=== PATIENT | female | born 1985 | race African-American/Black ===

== ENCOUNTER → 2019-09-23 | Outpatient (CLI) | payer MEDICARE, MEDICAID ==
[2014-11-08 17:04] VITALS: BP 126/72
[~2019-09-23] MED LIST: CLOZ100T PO; DIVA500T2 PO; HYDR50TA PO; OLAN20TA3 PO; TRAZ300T2 PO
--- NOTE | 2019-09-23 10:53 | KCIC ---
EXAM: Abdomen sonogram. HISTORY: Pain. TECHNIQUE: Sonographic imaging of the abdomen was performed. COMPARISON: CT dated 09/22/2014. FINDINGS: The exam is limited due to body habitus and bowel gas. The liver is enlarged. There is hepatic steatosis. No focal hepatic lesion is seen. The common bile duct is normal in caliber. The gallbladder is unremarkable. The kidneys are normal in size. There is no hydronephrosis. The pancreas, aorta, spleen and inferior vena cava are predominantly obscured due to bowel gas. The spleen appears to be normal in size. There are incidental splenic granulomas. The aorta appears to be normal in caliber. IMPRESSION: 1. Hepatomegaly and hepatic steatosis. 2. Limited exam due to body habitus and bowel gas. The midline structures are partially obscured. Electronically signed by: Fabiola Chin MD (09/23/2019 10:50 AM) [id number]
== END | disposition home or self-care (01) ==
LOC: KCIC US 07:42
PROVIDERS: ATTEND Family Medicine
DX: K76.0 Fatty (change of) liver, not elsewhere classified (principal); R16.0 Hepatomegaly, not elsewhere classified; D73.89 Other diseases of spleen
CPT/HCPCS: 76700

== ENCOUNTER → 2020-08-06 | Outpatient (CLI) | payer MEDICARE, MEDICAID ==
[2014-11-08 17:04] VITALS: BP 126/72
[~2020-08-06] MED LIST changes: +ATOR10TA60 PO; +BENZ2TAB5 PO; +BUSP30TA PO; +CLON1TAB12 PO; +CLOZ100T7 PO; +DIVA500T17 PO; +DOCU-109 PO; +GLYC2TAB4 PO; +HYDR50CA2 PO; +IBUP-1060 PO; +MULT-505 PO; +OMEP20CA16 PO; +TRAZ-123 PO
== END ==
LOC: LAB 08:30
PROVIDERS: ATTEND Obstetrics & Gynecology
DX: Z01.812 Encounter for preprocedural laboratory examination (principal)
CPT/HCPCS: U0003

== ENCOUNTER 2020-08-08 06:24 | Day surgery (SDC) | payer MEDICARE, MEDICAID ==
[~2020-08-08 06:24] MED LIST changes: -DOCU-109 PO; -IBUP-1060 PO
[2020-08-08] MEDS ORDERED: PROCHLORPERAZINE 10 MG/2 ML VIAL. IV PRN (07:00)
[2020-08-08] MEDS ORDERED: MORPHINE SULFATE 2 MG/ML VIAL. IV PRN (07:00)
[2020-08-08] MEDS ORDERED: LIDOCAINE 1% PF 2 ML VIAL. ID PRN (07:00)
[2020-08-08] MEDS ORDERED: ONDANSETRON PF 4 MG/2 ML VIAL. IV PRN (07:00)
[2020-08-08] MEDS ORDERED: HYDROmorphone 2 MG/ML VIAL IV PRN (07:00)
[2020-08-08] MEDS ORDERED: IV RINGERS,LACTATED 1000ML 1,000 ML IV SCH (07:00)
[2020-08-08] MEDS ORDERED: fentaNYL PF VIAL 100 MCG/2 ML VIAL IV PRN (07:00)
[2020-08-08 07:23] LABS: BASO # 0.1 x10^3/uL (0.0-0.2); BASO % 1 % (0-3); EOS # 0.1 x10^3/uL (0.0-0.7); EOS % 1 % (0-3); HEMATOCRIT 40.1 % (36.0-47.0); HEMOGLOBIN 13.1 g/dL (12.0-15.5); LYMPH # 4.8 x10^3/uL (1.0-4.8); LYMPH % 40 % (24-48); MEAN CORPUSCULAR HEMOGLOBIN 28 pg (25-35); MEAN CORPUSCULAR HGB CONC 33 g/dL (31-37); MEAN CORPUSCULAR VOLUME 84 fL (79-100); MONO # 0.7 x10^3/uL (0.0-1.1); MONO % 6 % (0-9); NEUT # 6.4 x10^3/uL (1.8-7.7); NEUT % 53 % (31-73); PLATELET COUNT 237 x10^3/uL (140-400); RED BLOOD COUNT 4.75 x10^6/uL (3.50-5.40); RED CELL DISTRIBUTION WIDTH 13.5 % (11.5-14.5)
[2020-08-08] MEDS ORDERED: LIDOCAINE 2% PF 5 ML VIAL. ONE (08:14)
[2020-08-08] MEDS ORDERED: DEXAMETHASONE SOD PHOS 4 MG/ML VIAL ONE (08:14)
[2020-08-08] MEDS ORDERED: ONDANSETRON PF 4 MG/2 ML VIAL. ONE (08:14)
[2020-08-08] MEDS ORDERED: PROPOFOL 10 MG/ML (20ML) VIAL. IV ONE (08:14)
[2020-08-08] MEDS ORDERED: fentaNYL PF VIAL 100 MCG/2 ML VIAL ONE ×2 (08:15→08:37)
[2020-08-08] MEDS ORDERED: SEVOFLURANE 16 TO 30 MINUTES. IH ONE (08:16)
[2020-08-08] MEDS ORDERED: PROCHLORPERAZINE 10 MG/2 ML VIAL. ONE (08:37)
[2020-08-08] MEDS ORDERED: DOCU-109 PO (08:47)
[2020-08-08] MEDS ORDERED: IBUP-1060 PO (08:47)
[2020-08-08] MEDS: fentaNYL PF VIAL 100 MCG/2 ML VIAL IV PRN ×2 (09:13→09:27)
[2020-08-08] MEDS ORDERED: IBUPROFEN 400 MG TABLET. PO ONE (09:30)
[2020-08-08 09:40] VITALS: BP 126/66
--- NOTE | 2020-08-08 10:13 | PDOC4 ---
OPERATIVE NOTE: PreOp Dx: 1.) Abd/Pelvic pain, 2.) AUB/Irregular bleeding, 3.) H/o dysplasia s/p excisional procedure in ~2013, 4.) Schizoaffective do, Bipolar, anxiety, ADHD , 5.) Hypothyroid, 6.) Tob use PostOp Dx: same Procedure: H/S, D&C Surgeon: Sherman Olson Anesthesia: GETA EBL: 100 cc Findings: nml appearing endometrial cavity Complications: none Path: endometrial curettage TAMMI OLSON MD Aug 08, 2020 10:13
--- NOTE | 2020-08-08 10:42 | OP ---
DATE OF SURGERY: 08/08/2020 PREOPERATIVE DIAGNOSES: 1. Abdominal/pelvic pain. 2. Abnormal uterine bleeding/irregular bleeding. 3. History of dysplasia status post excisional procedure in 2013. 4. Schizophrenia, bipolar, anxiety, ADHD. 5. Hypothyroidism. 6. Tobacco use. POSTOPERATIVE DIAGNOSES: 1. Abdominal/pelvic pain. 2. Abnormal uterine bleeding/irregular bleeding. 3. History of dysplasia status post excisional procedure in 2013. 4. Schizophrenia, bipolar, anxiety, ADHD. 5. Hypothyroidism. 6. Tobacco use. PROCEDURE: Hysteroscopy, D & C. SURGEON: Gerald Olson MD ANESTHESIA: General endotracheal intubation. ESTIMATED BLOOD LOSS: 100 mL. FINDINGS: Normal appearing endometrium. COMPLICATIONS: None. PATHOLOGY: Endometrial curetting. INDICATIONS: The patient is a 35-year-old 1, para 0-0-1-0, who presented to the office on 07/30/2020 for evaluation of pelvic pain and abnormal uterine bleeding. The patient had had irregular bleeding throughout her life at times going even a year without a period. At the visit we discussed the potential for endometrial hyperplasia and the value of evaluation of the endometrium. The patient did not feel comfortable having the procedure done in the office and preferred having it done under anesthesia. The patient was placed on the schedule for hysteroscopy, D & C. At that time, we also had a discussion regarding having a Mirena placed to prevent endometrial hyperplasia. At that time, the patient was willing to undergo said procedure. On the morning of the procedure, after performing independent research on the Mirena, she desired that it was not put in for concerns of potential complications so the patient underwent a hysteroscopy, D & C. DESCRIPTION OF PROCEDURE: The patient was taken to the operating room where general endotracheal intubation was obtained without difficulty. The patient was prepped and draped in normal sterile fashion. A posterior weighted speculum was placed in the patient's vagina. Followed by placing a right angle retractor to visualize the cervix. The anterior lip of the cervix was then grabbed with a single tooth tenaculum. The cervix was sufficiently dilated to allow for the hysteroscope to be placed. Visualization of the endometrial cavity revealed normal anatomy. Once the hysteroscope was removed, curetting was performed until gritty texture was felt in all 4 quadrants. Specimen was then sent to pathology. At that point, the tenaculum was removed with no bleeding at the tenaculum site. Good hemostasis was noted. At that point, the patient was taken to recovery room in stable condition. GERALD OLSON MD DR: CINDI/cora JOB#: [id number] / [id number] YOSVANY
== END 2020-08-08 10:15 | disposition home or self-care (01) ==
LOC: SURG 06:24
PROVIDERS: ATTEND Obstetrics & Gynecology
DX: N93.9 Abnormal uterine and vaginal bleeding, unspecified (principal); R10.2 Pelvic and perineal pain; E03.9 Hypothyroidism, unspecified; E78.00 Pure hypercholesterolemia, unspecified; F20.9 Schizophrenia, unspecified; F90.9 Attention-deficit hyperactivity disorder, unspecified type; F17.210 Nicotine dependence, cigarettes, uncomplicated; F41.9 Anxiety disorder, unspecified; Z79.899 Other long term (current) drug therapy; Z98.890 Other specified postprocedural states; Z91.013 Allergy to seafood; Z88.8 Allergy status to other drugs, medicaments and biological substances
CPT/HCPCS: 36415; 58558; 81025; 85025; 86850; 86900; 86901; J1100; J2405; J2704; J3010; J0780

== ENCOUNTER → 2020-10-09 | Outpatient (CLI) | payer MEDICARE, MEDICAID ==
[2014-11-08 17:04] VITALS: BP_SYST 126
[2020-08-08 09:40] VITALS: BP_DIAS 66
[~2020-10-09] MED LIST changes: +DOCU-109 PO; +IBUP-1060 PO
--- NOTE | 2020-10-09 17:11 | RAD ---
INDICATION: Reason: Dysfunctional Uterine Bleeding / Spl. Instructions: / History: COMPARISON: CT September 2014 TECHNIQUE: Grayscale and color ultrasound images uterus and adnexa. FINDINGS: Uterus: 79 x 45 x 33 mm. 2 mm endometrial stripe. Right Ovary: 33 x 18 x 20 mm. Left Ovary: 30 x 17 x 19 mm. Vascular flow identified to bilateral ovaries. IMPRESSION: * No thickening of the endometrial stripe. Electronically signed by: Laz Bowser MD (10/09/2020 5:08 PM) [id number]
== END ==
LOC: US 15:43
PROVIDERS: ATTEND Nurse Practitioner Gerontology
DX: N93.8 Other specified abnormal uterine and vaginal bleeding (principal)
CPT/HCPCS: 76856

== ENCOUNTER 2021-03-02 07:02 | Emergency (ER) | payer MEDICARE, MEDICAID ==
[~2021-03-02] VITALS: Ht 167.6 cm; Wt 116.4 kg
--- NOTE | 2021-03-02 07:47 | PHYS DOC ---
Past Medical History Past Medical History: Anxiety, Asthma, Bipolar, COPD, Hypothyroid Additional Past Medical Histor: schizo effective disorder,adhd Past Surgical History: Other Additional Past Surgical Histo: LEEP, D&C Smoking Status: Current Every Day Smoker Alcohol Use: Occasionally Drug Use: None General Adult EDM: Chief Complaint: UPPER EXTREMITY INJURY HPI: HPI: Patient is a 35 year old female who present to ER for evaluation of a wound on her left forearm area. Patient carved a letter R into the distal part of her left forearm earlier today. She just wanted to do it because she is stressed out. She denies suicidal ideation, denies homicidal nation. Patient said the letter R stands for RETARD. Patient up-to-date on her tetanus vaccination status. Review of Systems: Review of Systems: Constitutional: Denies fever or chills. [] Eyes: Denies change in visual acuity. [] HENT: Denies nasal congestion or sore throat. [] Respiratory: Denies cough or shortness of breath. [] Cardiovascular: Denies chest pain or edema. [] GI: Denies abdominal pain, nausea, vomiting, bloody stools or diarrhea. [] : Denies dysuria. [] Musculoskeletal: Denies back pain or joint pain. [] Integument: POSITIVE FOR SUPERFICIAL SKIN ABRASION ON LEFT FOREARM. Neurologic: Denies headache, focal weakness or sensory changes. [] Endocrine: Denies polyuria or polydipsia. [] Lymphatic: Denies swollen glands. [] Psychiatric: Denies depression or anxiety. DENIED SUICIDAL IDEATION, DENIED HOMICIDAL IDEATION. Heart Score: C/O Chest Pain: N/A Risk Factors: Risk Factors: DM, Current or recent (<one month) smoker, HTN, HLP, family history of CAD, obesity. Risk Scores: Score 0 - 3: 2.5% MACE over next 6 weeks - Discharge Home Score 4 - 6: 20.3% MACE over next 6 weeks - Admit for Clinical Observation Score 7 - 10: 72.7% MACE over next 6 weeks - Early Invasive Strategies Allergies: Allergies: Allergies Coded Allergies Type Severity Reaction Last Updated Verified shellfish derived Allergy Severe "anaphalaxis" 07/31/20 No haloperidol Allergy Intermediate 07/31/20 No lisdexamfetamine Allergy Intermediate Rash 07/31/20 Yes cariprazine Adverse Reaction Intermediate syncope 11/24/20 Yes Physical Exam: PE: Constitutional: Well developed, well nourished, no acute distress, non-toxic a ppearance. [] HENT: Normocephalic, atraumatic, bilateral external ears normal, oropharynx moist, no oral exudates, nose normal. [] Eyes: PERRLA, EOMI, conjunctiva normal, no discharge. [] Neck: Normal range of motion, no tenderness, supple, no stridor. [] Cardiovascular:Heart rate regular rhythm, no murmur [] Lungs & Thorax: Bilateral breath sounds clear to auscultation [] Abdomen: Bowel sounds normal, soft, no tenderness, no masses, no pulsatile masses. [] Skin: Warm, dry, no erythema, SUPERFICIAL SKIN ABRASION ON DISTAL PART OF LEFT FOREARM, A FRESHLY CARVED LETTER "R", NO ACTIVE BLEEDING. Back: No tenderness, no CVA tenderness. [] Extremities: No tenderness, no cyanosis, no clubbing, ROM intact, no edema. [] Neurologic: Alert and oriented X 3, normal motor function, normal sensory function, no focal deficits noted. [] Psychologic: Affect normal, judgement normal, mood normal. DENIED SUICIDAL IDEAT ION, DENIED HOMICIDAL IDEATION. Current Patient Data: Vital Signs: Vital Signs Date Time Temp Pulse Resp B/P (MAP) Pulse Ox O2 Delivery O2 Flow Rate FiO2 03/02/21 07:10 98.6 71 16 145/67 (93) 99 Room Air 98.6 EKG: EKG: [] Radiology/Procedures: Radiology/Procedures: [] Course & Med Decision Making: Course & Med Decision Making Pertinent Labs and Imaging studies reviewed. (See chart for details) Patient was evaluated by the psychiatric assessment team, denies suicidal ideation denies most ideation. Recommended to discharge patient home, patient denies suicidal ideation at the time of discharge. Dragon Disclaimer: Dragon Disclaimer: This electronic medical record was generated, in whole or in part, using a voice recognition dictation system. Departure Departure Impression: Primary Impression: Skin abrasion Disposition: HOME / SELF CARE / HOMELESS Condition: STABLE Referrals: TAMMI ANG MD (PCP) Follow up with your doctor on THURSDAY Patient Instructions: Abrasions Additional Instructions: Thank you for visiting our Emergency Department. We appreciate you trusting us with your care. If any additional problems come up don't hesitate to return to visit us. Please follow up with your primary care provider so they can plan additional care if needed and know about the problem that you had. If symptoms worsen come back to the Emergency Department. Any concerning symptoms that start such as chest pain, shortness of air, weakness or numbness on one side of the body, running high fevers or any other concerning symptoms return to the ER. JOVAN LARA DO Mar 02, 2021 07:47
[2021-03-02 09:00] VITALS: BP 148/78
== END 2021-03-02 09:17 | disposition home or self-care (01) ==
LOC: ER 07:02
DX: S51.802A Unspecified open wound of left forearm, initial encounter (principal); J44.9 Chronic obstructive pulmonary disease, unspecified; F31.9 Bipolar disorder, unspecified; E03.9 Hypothyroidism, unspecified; F25.9 Schizoaffective disorder, unspecified; F90.9 Attention-deficit hyperactivity disorder, unspecified type; F17.200 Nicotine dependence, unspecified, uncomplicated; Z88.8 Allergy status to other drugs, medicaments and biological substances; Z91.013 Allergy to seafood; X58.XXXA Exposure to other specified factors, initial encounter; Y93.89 Activity, other specified; Y92.89 Other specified places as the place of occurrence of the external cause; Y99.8 Other external cause status
CPT/HCPCS: 99281